=== PATIENT | male | born 1975 | race Hispanic/Latino ===

== ENCOUNTER 2020-09-09 16:57 | Emergency (ER) | payer BC ==
[2020-09-09] MEDS ORDERED: HYDROCODONE/APAP 5/325 MG TAB ONE (20:27)
--- NOTE | 2020-09-09 20:47 | RAD REPORT ---
EXAM DESCRIPTION: RAD - Hand Left 3 View - 09/09/2020 8:39 pm CLINICAL HISTORY: trauma Pain and swelling COMPARISON: <Comparisons> FINDINGS: Soft tissue laceration is noted at the base of the first finger. No fracture or radiopaque foreign body evident.
[2020-09-09] MEDS ORDERED: LIDOCAINE 1% 20 ML MDV ONE (21:36)
--- NOTE | 2020-09-09 22:58 | EDPHYS ---
Physician Documentation [facility] Name: Cristian Arias Age: 45 yrs Sex: Male : 1975 Arrival Date: 09/09/2020 Time: 16:58 Bed 27 Private MD: Dedrick Hills B ED Physician Eliel Hale HPI: 09/09 22:50 This 45 yrs old Male presents to ER via Ambulatory with complaints of Thumb mh7 Injury. 22:50 The patient or guardian reports a laceration, irregular. The complaints affect the left mh7 thumb. Context: The problem was sustained at home, resulted from a penetrating injury, by sharp metal, instrument lens grinder machine. Onset: The symptoms/episode began/occurred just prior to arrival, today. Modifying factors: The symptoms are alleviated by nothing, the symptoms are aggravated by nothing. Associated signs and symptoms: Pertinent negatives: cyanosis distally, decreased sensation distally, fever, nausea, numbness distally, tingling distally, vomiting. Severity of symptoms: At their worst the symptoms were moderate, just prior to arrival, earlier today, in the emergency department the symptoms are unchanged. Historical: - Allergies: 17:29 No Known Allergies; ca1 - Home Meds: 17:29 None [Active]; ca1 - PMHx: 17:29 None; ca1 - PSHx: 17:29 None; ca1 - Immunization history:: Last tetanus immunization: < 5 years ago. - Social history:: Smoking status: Patient denies any tobacco usage or history of. ROS: 22:50 Constitutional: Negative for fever, chills, and weight loss, Eyes: Negative for injury, mh7 pain, redness, and discharge, ENT: Negative for injury, pain, and discharge, Neck: Negative for injury, pain, and swelling, Cardiovascular: Negative for chest pain, palpitations, and edema, Respiratory: Negative for shortness of breath, cough, wheezing, and pleuritic chest pain, Abdomen/GI: Negative for abdominal pain, nausea, vomiting, diarrhea, and constipation, Back: Negative for injury and pain, : Negative for injury, bleeding, discharge, and swelling, Neuro: Negative for headache, weakness, numbness, tingling, and seizure, Psych: Negative for depression, anxiety, suicide ideation, homicidal ideation, and hallucinations, Allergy/Immunology: Negative for hives, rash, and allergies, Endocrine: Negative for neck swelling, polydipsia, polyuria, polyphagia, and marked weight changes, Hematologic/Lymphatic: Negative for swollen nodes, abnormal bleeding, and unusual bruising. Exam: 22:50 Constitutional: This is a well developed, well nourished patient who is awake, alert, mh7 and in no acute distress. Head/Face: Normocephalic, atraumatic. 22:50 Neuro: Awake and alert, GCS 15, oriented to person, place, time, and situation. Cranial nerves II-XII grossly intact. Motor strength 5/5 in all extremities. Sensory grossly intact. Cerebellar exam normal. Normal gait. Psych: Awake, alert, with orientation to person, place and time. Behavior, mood, and affect are within normal limits. 22:50 Musculoskeletal/extremity: Extremities: noted in the left thumb : laceration, ROM: intact in all extremities, Circulation is intact in all extremities. Pulses: are normal with no appreciated deficits, Sensation intact. Compartment Syndrome exam of affected extremity: is normal. no numbness, no tingling, no sensation deficit, no palor, no weak pulses, Joints: All joints appear normal with full range of motion. Weight bearing: able to fully bear weight, without difficulty, Tendon exam: specific tendon testing normal through active and passive range of motion 22:50 Skin: injury, laceration(s), the wound is approximately 5 cm(s), with a depth of 0.5 cm(s), of the left thumb. Vital Signs: 17:28 BP 137 / 87; Pulse 94; Resp 16 S; Temp 97.1(TE); Pulse Ox 99% on R/A; Weight 79.83 kg ca1 (R); Height 5 ft. 8 in. (172.72 cm) (R); Pain 5/10; 20:59 BP 131 / 85; Pulse 90; Resp 17; Pulse Ox 98% ; rr5 23:00 BP 117 / 85; Pulse 85; Resp 16; Pulse Ox 98% ; rr5 17:28 Body Mass Index 26.76 (79.83 kg, 172.72 cm) ca1 Laceration: 22:48 Wound Repair of 5cm ( 2.0in ) subcutaneous laceration to palmar aspect of distal pm1 phalanx of left thumb and palmar aspect of proximal phalanx of left thumb. Irregularly shaped.. Distal neuro/vascular/tendon intact. Anesthesia: Local anesthetic administered with 3 mls of 1% lidocaine. Wound prep: Extensive cleansing with betadine by nurse, Wound irrigation with saline by nurse, Wound explored extensively, Copious irrigation. Skin closed with 14 4-0 Prolene using simple sutures and sterile technique. Dressed with 4x4's, Kerlix. Patient tolerated well. MDM: 22:50 Differential diagnosis: open fracture, contusion, abrasion, laceration. Data reviewed: [facility] vital signs, nurses notes, radiologic studies, plain films. Data interpreted: Pulse oximetry: on room air is 98 %. Interpretation: normal. Counseling: I had a detailed discussion with the patient and/or guardian regarding: the historical points, exam findings, and any diagnostic results supporting the discharge/admit diagnosis, radiology results, the need for outpatient follow up, to return to the emergency department if symptoms worsen or persist or if there are any questions or concerns that arise at home. Response to treatment: the patient's symptoms have markedly improved after treatment. 22:57 Patient medically screened. [facility] 09/09 19:57 Order name: Hand Left 3 View XRAY [facility] 09/09 19:58 Order name: Hand Left 3 View; Complete Time: 20:55 EDMS 09/09 21:15 Order name: Suture Tray Setup; Complete Time: 21:17 [facility] Administered Medications: 20:10 Drug: Kimberly (HYDROcodone-acetaminophen) 5 mg-325 mg 1 tabs {Note: rass 0.} Route: PO; rr5 21:10 Follow up: Response: No adverse reaction rr5 21:57 Drug: Lidocaine (1 %) 10 ml {Note: given by Andrzej Posey} Volume: 20 ml; Route: rr5 Infiltration; 23:00 Drug: Ancef (cefazolin) 1 grams Route: IM; Site: right gluteus; rr5 23:26 Follow up: Response: No adverse reaction rr5 Disposition: 09/09/20 22:57 Discharged to Home. Impression: Laceration, Left Thumb. - Condition is Stable. - Discharge Instructions: Laceration Care, Adult, Cvix-by-Jwie, Sutured Wound Care, Enqy-ya-Ajir. - Prescriptions for Ibuprofen 800 mg Oral Tablet - take 1 tablet by ORAL route every 8 hours As needed take with food; 15 tablet. Keflex 500 mg Oral Capsule - take 1 capsule by ORAL route every 8 hours for 7 days; 21 capsule. - Medication Reconciliation Form, Thank You Letter, Antibiotic Education, Prescription Opioid Use form. - Follow up: Private Physician; When: 48 Hours; Reason: Wound Recheck, Worsening of condition, Recheck today's complaints, Continuance of care, Re-evaluation by your physician. Follow up: Emergency Department; When: 48 Hours; Reason: Wound Recheck, Worsening of condition. - Problem is new. - Symptoms have improved. Signatures: Dispatcher [employer] EDMS Andrzej Glass, ATTORNEY AT LAW ATTORNEY AT LAW pm1 Jeanmarie Nieves RN RN rr5 Roxana Bains RN RN ca1 Eliel Hale MD MD mh7 Corrections: (The following items were deleted from the chart) 23:26 22:57 09/09/2020 22:57 Discharged to Home. Impression: Laceration, Left Thumb. rr5 Condition is Stable. Forms are Medication Reconciliation Form, Thank You Letter, Antibiotic Education, Prescription Opioid Use. Follow up: Private Physician; When: 48 Hours; Reason: Wound Recheck, Worsening of condition, Recheck today's complaints, Continuance of care, Re-evaluation by your physician. Follow up: Emergency Department; When: 48 Hours; Reason: Wound Recheck, Worsening of condition. Problem is new. Symptoms have improved. mh7
--- NOTE | 2020-09-09 22:58 | ER ---
Nurse's Notes [facility] Name: Cristian Arias Age: 45 yrs Sex: Male : 1975 Arrival Date: 09/09/2020 Time: 16:58 Bed 27 Private MD: Dedrick Hills B Diagnosis: Laceration, Left Thumb Presentation: 09/09 17:28 Chief complaint: Patient states: Lac on L thumb with a centerless grinder 1 hr MASS SPEC. Bleeding ca1 controlled. Coronavirus screen: Client denies travel out of the [place] in the last 14 days. At this time, the client does not indicate any symptoms associated with coronavirus-19. Ebola Screen: Patient negative for fever greater than or equal to 101.5 degrees Fahrenheit, and additional compatible Ebola Virus Disease symptoms Patient denies exposure to infectious person. Patient denies travel to an Ebola-affected area in the 21 days before illness onset. No symptoms or risks identified at this time. Initial Sepsis Screen: Does the patient meet any 2 criteria? No. Patient's initial sepsis screen is negative. Does the patient have a suspected source of infection? No. Patient's initial sepsis screen is negative. Risk Assessment: Do you want to hurt yourself or someone else? Patient reports no desire to harm self or others. Onset of symptoms was September 09, 2020. 17:28 Method Of Arrival: Ambulatory ca1 17:28 Acuity: PREM 4 ca1 Triage Assessment: 21:00 Injury Description: Laceration sustained to left hand. rr5 Historical: - Allergies: 17:29 No Known Allergies; ca1 - Home Meds: 17:29 None [Active]; ca1 - PMHx: 17:29 None; ca1 - PSHx: 17:29 None; ca1 - Immunization history:: Last tetanus immunization: < 5 years ago. - Social history:: Smoking status: Patient denies any tobacco usage or history of. Screenin:16 Abuse screen: Denies threats or abuse. Denies injuries from another. Nutritional rr5 screening: No deficits noted. Tuberculosis screening: No symptoms or risk factors identified. Fall Risk None identified. Total Pepe Fall Scale indicates No Risk (0-24 pts). Assessment: 20:10 General: Appears in no apparent distress. uncomfortable, Behavior is calm, cooperative, rr5 appropriate for age. 20:10 Pain: Complains of pain in left thumb Pain currently is 7 out of 10 on a pain scale. rr5 Quality of pain is described as aching, Pain began suddenly, Is intermittent. Neuro: Level of Consciousness is awake, alert, obeys commands, Oriented to person, place, time. Cardiovascular: Capillary refill < 3 seconds Patient's skin is warm and dry. Respiratory: Airway is patent Respiratory effort is even, unlabored, Respiratory pattern is regular, symmetrical. Derm: Skin is intact, is healthy with good turgor, Skin temperature is warm Wound noted left thumb Wound is lacerated wound. Musculoskeletal: Capillary refill < 3 seconds. 20:55 Reassessment: awaiting for result. rr5 22:00 Reassessment: Patient appears in no apparent distress at this time. Patient and/or rr5 family updated on plan of care and expected duration. Pain level reassessed. Patient is alert, oriented x 3, equal unlabored respirations, skin warm/dry/pink. 23:25 Reassessment: Patient appears in no apparent distress at this time. Patient is alert, rr5 oriented x 3, equal unlabored respirations, skin warm/dry/pink. discharge instruction given and explained without complaints made. Vital Signs: 17:28 BP 137 / 87; Pulse 94; Resp 16 S; Temp 97.1(TE); Pulse Ox 99% on R/A; Weight 79.83 kg ca1 (R); Height 5 ft. 8 in. (172.72 cm) (R); Pain 5/10; 20:59 BP 131 / 85; Pulse 90; Resp 17; Pulse Ox 98% ; rr5 23:00 BP 117 / 85; Pulse 85; Resp 16; Pulse Ox 98% ; rr5 17:28 Body Mass Index 26.76 (79.83 kg, 172.72 cm) ca1 ED Course: 16:58 Patient arrived in ED. am2 16:58 Dedrick Hills MD is Private Physician. am2 17:29 Triage completed. ca1 17:29 Arm band placed on right wrist. ca1 19:42 Pallavi Mckeon, JOSH is Primary Nurse. iw 19:44 Eliel Hale MD is Attending Physician. mh7 20:16 Patient has correct armband on for positive identification. Bed in low position. Call rr5 light in reach. Pulse ox on. NIBP on. 20:16 X-ray(s) taken. rr5 20:39 Hand Left 3 View In Process Unspecified. EDMS 22:55 Assist provider with laceration repair on left hand that was 2.5 cm. or less using rr5 sutures. Set up tray. Performed by Andrzej Glass MANAGER RESEARCH Dressed with 4X4s, Neosporin, Patient tolerated well. 22:55 Patient did not have IV access during this emergency room visit. rr5 Administered Medications: 20:10 Drug: Haslett (HYDROcodone-acetaminophen) 5 mg-325 mg 1 tabs {Note: rass 0.} Route: PO; rr5 21:10 Follow up: Response: No adverse reaction rr5 21:57 Drug: Lidocaine (1 %) 10 ml {Note: given by Andrzej MORENO .} Volume: 20 ml; Route: rr5 Infiltration; 23:00 Drug: Ancef (cefazolin) 1 grams Route: IM; Site: right gluteus; rr5 23:26 Follow up: Response: No adverse reaction rr5 Outcome: 22:57 Discharge ordered by MD. gan 23:25 Discharged to home ambulatory. rr5 23:25 Condition: stable 23:25 Discharge instructions given to patient, family, Instructed on discharge instructions, follow up and referral plans. medication usage, Demonstrated understanding of instructions, follow-up care, medications, Prescriptions given X 2. 23:26 Patient left the ED. rr5 Signatures: Dispatcher [employer] EDMS Pallavi Mckeon RN RN iw Moreno, Amanda am2 Jeanmarie Nieves RN RN rr5 Roxana Bains RN RN ca1 Holmes, Maurice, MD MD [facility]
[2020-09-09] MEDS ORDERED: DERMABOND SKIN ADHESIVE TOP ONE (22:59)
[2020-09-09] MEDS ORDERED: WATER FOR INJ,STERILE 10 ML ONE (23:15)
[2020-09-09] MEDS ORDERED: CEFAZOLIN SODIUM 1 GM/VIAL ONE (23:15)
[2020-09-09 23:31] VITALS: TEMP 97.1
[2020-09-09 23:33] VITALS: O2SAT 98
[2020-09-09 23:34] VITALS: BP 117/85
== END 2020-09-09 23:26 | disposition home or self-care (01) ==
LOC: ER 16:57
PROC: 0HQGXZZ Repair Left Hand Skin, External Approach (ICD-10-PCS; principal; 2020-09-09)
DX: S61.012A Laceration without foreign body of left thumb without damage to nail, initial encounter (principal); W31.89XA Contact with other specified machinery, initial encounter
CPT/HCPCS: 73130; 12002; J0690; 96372; 99284